=== PATIENT | female | born 1945 | race Caucasian/White ===

== ENCOUNTER 2021-07-14 07:21 | Day surgery (SDC) | payer MEDICARE ==
[~2021-07-14] VITALS: Ht 160 cm; Wt 65.0 kg
[~2021-07-14 07:21] MED LIST: ELIQUIS5 M2 PO; FURO20; LISI20; METO25ER; POTCHL20ER; Prozac20 MG; ROSU10TA
--- NOTE | 2021-07-14 10:45 | NUR ---
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
--- NOTE | 2021-07-14 10:54 | NUR ---
RETURNED FROM X-RAY
--- NOTE | 2021-07-14 12:45 | NUR ---
ANCEF 1G IVPB GIVEN.
--- NOTE | 2021-07-14 13:38 | NUR ---
PT AND DAUGHTER VERBALIZED UNDERSTANDING OF WRITTEN AND VERBAL D/C INST. IV REMOVED. PT TAKEN OUT OF THE [facility]RT [facility]ENTER VIA W/C.
== END 2021-07-14 13:45 | disposition home or self-care (01) ==
LOC: MHTC 07:21
DX: I49.5 Sick sinus syndrome (principal); I48.0 Paroxysmal atrial fibrillation; E78.5 Hyperlipidemia, unspecified; I10 Essential (primary) hypertension
CPT/HCPCS: 33208; 71046; 99152; 99153; A9270; C1785; C1894; C1898; J0690; J1580; J1644; J2250; J3010; J7030; J7040; Q9967

== ENCOUNTER → 2022-04-30 | Outpatient (CLI) | payer MEDICARE ==
[2022-04-30 09:40] LABS: BASOPHILS ABSOLUTE AUTO 0.05 K/mm3 (0.00-0.23); BASOPHILS PERCENT AUTO 1 % (0-2); EOSINOPHILS ABSOLUTE AUTO 0.17 K/mm3 (0.00-0.68); EOSINOPHILS PERCENT AUTO 2 % (0-6); Hematocrit 37.6 % (33.0-51.0); Hemoglobin 12.6 g/dL (11.5-16.0); IMMATURE GRAN ABSOLUTE AUTO 0.03 K/mm3 (0.00-0.10); IMMATURE GRAN PERCENT AUTO 0 % (0-1); LYMPHOCYTES ABSOLUTE AUTO 1.91 K/mm3 (0.84-5.20); LYMPHOCYTES PERCENT AUTO 21 % (21-46); MONOCYTES PERCENT AUTO 10 % (4-13); Mean Corpuscular HGB 30.1 pg (26.0-34.0); Mean Corpuscular HGB Conc 33.5 g/dL (31.5-36.5); Mean Corpuscular Volume 90 fL (80-100); Mean Platelet Volume 10.7 fL (9.1-12.4); NEUTROPHILS ABSOLUTE AUTO 6.04 K/mm3 (1.96-9.15); NEUTROPHILS PERCENT AUTO 66 % (41-73); Platelet Count 251 K/mm3 (150-400); RDW Coefficient Variation 11.9 % (11.7-14.2); RDW Standard Deviation 39.2 fL (35.1-46.3); Red Blood Cell Count 4.18 M/mm3 (3.80-5.20)
[2022-04-30 09:44] LABS: Bun/Creatinine Ratio 26.2 (12.0-20.0); Calcium, Blood 9.2 mg/dL (8.5-10.1); Creatinine, Blood 0.84 mg/dL (0.40-1.00); Potassium, Blood 4.5 mmol/L (3.5-5.5)
== END | disposition home or self-care (01) ==
LOC: LAB 09:35 → LAB SHORT 09:35
PROVIDERS: Physician Assistant Surgical
DX: I50.9 Heart failure, unspecified (principal)
CPT/HCPCS: 80048; 83880; 85025